=== PATIENT | male | born 2000 | race Two or more races ===

== ENCOUNTER 2024-12-26 13:05 | Emergency (ER) | payer SELFPAY ==
--- NOTE | 2024-12-26 14:07 | EKG_ITS ---
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
--- NOTE | 2024-12-26 14:07 | XR_ITS ---
Examination: PA lateral chest 2 views Technique: Upright PA lateral chest 2 views Date and time: December 26, 2024 1420 hrs. Indications: Chest pain beginning 2 days ago with hypertension. Findings: Normal heart size. Lungs are clear. The osseous structures are intact. Impression: No active disease.
--- NOTE | 2024-12-26 14:07 | PD.EDRME ---
Rapid Medical Screening Exam RME Arrival date/time: 12/26/24 13:05 24-year-old male presents to the Emergency Department for complaint of headache and chest pain and shortness of breath Chief Complaint: Shortness of Breath/Dyspnea
[2024-12-26 14:08] VITALS: BP 147/91; PULSE 79; RESP 18; TEMP 37.3; O2SAT 99; BMI 31.6
--- NOTE | 2024-12-26 14:08 | XR_ITS ---
Examination: CT brain head without contrast. 2-D sagittal coronal reconstructions Date and time of exam:December 26 thousand 25, 1618 hours INDICATIONS: Generalized head pain and dizziness today CTDI: vol (mGy):49.8 DLP: (mGycm):1003 Technique: Multiple CT axial sections of the brain have been obtained, 5 mm slice thickness. Contrast has not been administered. 2-D sagittal, coronal reconstructions have been obtained Low dose protocols were performed. One or more of the following dose reduction techniques were used; automated exposure control, adjustment of the mA and/or KV according to patient size, use of iterative reconstruction technique. Findings: No significant ventricular enlargement. Intra-axial or extra-axial hemorrhage density is not seen. No mass effect or midline shift Basal cisterns are not remarkable. Fourth ventricle is midline. Cranial vault intact. Impression: Negative for acute hemorrhage, mass effect or midline shift Advise clinical correlation and follow-up accordingly
[2024-12-26 15:46] LABS: Basophils # (Auto) 0.0 Thou/mm3 (0.0-0.2); Basophils % (Auto) 0 % (0-2.5); Eosinophils # (Auto) 0.0 Thou/mm3 (0.0-0.5); Eosinophils % (Auto) 0 % (0-10); Hematocrit 41.8 % (41.0-53.0); Hemoglobin 14.8 g/dL (13.5-16.0); Immature Granulocytes Auto 0.05 Thou/mm3 (0.00-0.00); Lymphocytes # (Auto) 1.4 Thou/mm3 (1.0-4.8); Lymphocytes % (Auto) 13 % (10-50); Mean Corpuscular HGB Conc 35.4 g/dl (31.0-37.0); Mean Corpuscular Hemoglobin 29.0 pg (25.0-35.0); Mean Corpuscular Volume 82 fL (80-100); Monocytes # (Auto) 0.8 Thou/mm3 (0.0-0.8); Monocytes % (Auto) 7 % (0-12); Neutrophils # (Auto) 9.0 Thou/mm3 (1.8-7.7); Neutrophils % (Auto) 80 % (37-80); Nucleated Red Blood Cell # 0.00 Thou/mm3 (0.00-0.00); Nucleated Red Blood Cell % 0 /100 WBC (0); RDW Standard Deviation 35.6 fL (35.1-43.9); Red Blood Count 5.10 Miln/mm3 (4.50-5.90); White Blood Count 11.3 Thou/mm3 (3.8-10.6)
[2024-12-26 16:03] LABS: Alanine Aminotransferase 30 U/L (10-49); Albumin, Serum 5.0 gm/dL (3.5-5.0); Albumin/Globulin Ratio 2.2 (1.2-2.2); Alkaline Phosphatase 85 U/L (46-116); Anion Gap 11 (7-16); Aspartate Amino Transferase 28 U/L (0-34); BUN/Creatinine Ratio 10 Ratio (12-20); Bilirubin,Total 0.7 mg/dL (0.3-1.2); Blood Urea Nitrogen 11 mg/dL (9-23); Calcium 10.6 mg/dL (8.3-10.6); Calcium (Corrected) 10.6 mg/dL (8.5-10.1); Carbon Dioxide 24.8 mMol/L (20.0-31.0); Chloride 104 mMol/L (98-107); Creatinine (Component) 1.1 mg/dL (0.6-1.3); Estimated Creatinine Clearance 106.3 mL/min (>60); Globulin 2.3 gm/dL (2.3-3.5); Glucose 106 mg/dL (74-106); Osmolality,Calculated 278 (275-295); Potassium 4.1 mMol/L (3.4-5.1); Sodium 140 mMol/L (136-145); Total Protein 7.3 gm/dL (5.7-8.2); Troponin I < 0.002 ng/mL (0.0-0.045); eGFR > 60 See Note
[2024-12-26 16:04] LABS: Platelet Count 202 Thou/mm3 (140-440)
[2024-12-26 17:40] VITALS: BP 158/92; PULSE 88; RESP 18; TEMP 37; O2SAT 98
--- NOTE | 2024-12-26 19:27 | PD.EDHA ---
ED Headache RME/HPI General Chief Complaint: Shortness of Breath/Dyspnea Stated Complaint: SOB, CHEST PAIN, HEADACHE X 1 DAY Time Seen by Provider: 12/26/24 14:16 Source: patient Arrival date/time: 12/26/24 13:05 24-year-old male with no known medical history presents to the emergency room with a chief complaint of a headache, chest pain, shortness of breath x 1 day Mode of arrival: ambulatory Limitations: no limitations RME / HPI RME / HPI Narrative: 12/26/24 13:05 24-year-old male presents to the Emergency Department for complaint of headache and chest pain and shortness of breath Related Data Previous Rx's ?Medication ?Instructions ?Recorded acetaminophen-caffeine 500 mg-65 1 tab PO Q8H PRN pain #30 tabs 12/26/24 mg tablet (Excedrin Tension Headache) Allergies Allergy/AdvReac Type Severity Reaction Status Date / Time No Known Allergies Allergy Verified 12/26/24 13:09 Review of Systems Review of Systems Systems Reviewed: All systems reviewed, normal except as documented Constitutional Constitutional: Reports system reviewed and no additional complaints, except as documented, Denies fatigue, Denies fever(s), Reports headache(s) and Denies weakness Eyes Eyes: Reports system reviewed and no additional complaints, except as documented, Denies blurry vision and Denies change in vision ENT Ears, Nose, Mouth, and Throat: Reports system reviewed and no additional complaints, except as documented, Denies otalgia, Reports headache(s), Denies nasal congestion, Denies throat swelling and Denies vertigo Cardiovascular Cardiovascular: Reports system reviewed and no additional complaints, except as documented, Denies chest pain, Reports dyspnea and Denies dyspnea on exertion Respiratory Respiratory: Reports system reviewed and no additional complaints, except as documented, Denies chest congestion, Denies cough, Reports dyspnea, Denies dyspnea on exertion and Denies wheezing Gastrointestinal Gastrointestinal: Reports system reviewed and no additional complaints, except as documented, Denies abdominal pain, Denies cramping, Denies nausea and Denies vomiting Genitourinary Genitourinary: Reports system reviewed and no additional complaints, except as documented, Denies dysuria and Denies hematuria Musculoskeletal Musculoskeletal: Reports system reviewed and no additional complaints, except as documented and Denies back pain Integumentary/Breasts Skin/Breast: Reports system reviewed and no additional complaints, except as documented and Denies wounds Neurologic Neurologic: Reports system reviewed and no additional complaints, except as documented, Denies confusion, Reports headache(s), Denies lack of coordination, Denies vertigo and Denies weakness Psychiatric Psychiatric: Reports system reviewed and no additional complaints, except as documented, Denies anxiety, Denies confusion, Denies depression, Denies paranoia, Denies suicidal ideation and Denies tactile hallucinations Endocrine Endocrine: Reports system reviewed and no additional complaints, except as documented and Denies fatigue Hematologic/Lymphatic Hematologic/Lymphatic: Reports system reviewed and no additional complaints, except as documented and Denies lymphadenopathy Allergic/Immunologic Allergic/Immunologic: Reports system reviewed and no additional complaints, except as documented, Denies throat swelling, Denies urticaria and Denies wheezing Past Medical History Social History SMOKING STATUS: Never smoker ED Exam General Limitations: Present no limitations General appearance: Present alert and in no apparent distress Head Head exam: Present atraumatic, normocephalic and normal inspection Eye Eye exam: Present normal appearance, PERRL and EOMI ENT ENT exam: Present normal exam, normal oropharynx and mucous membranes moist Neck Neck exam: Present normal inspection, full ROM and trachea midline Chest Chest inspection: Present normal inspection and symmetric chest wall rise Respiratory Respiratory exam: Present normal lung sounds bilaterally; Absent respiratory distress, wheezes, stridor, accessory muscle use or prolonged expiratory phase Cardiovascular Cardiovascular exam: Present regular rate, normal rhythm and normal heart sounds; Absent tachycardia Abdominal Exam Abdominal exam: Present soft and normal bowel sounds; Absent tenderness Extremities Exam Extremities exam: Present normal inspection and full ROM Back Exam Back exam: Present normal inspection and full ROM Neurological Exam Neurological exam: Present alert, oriented X3 and CN II-XII intact Psychiatric Psychiatric exam: Present normal affect and normal mood Skin Skin exam: Present warm, dry, intact and normal color Course Quality Measures none Orders Category Date Time Status Bedside COVID-19 Antigen Test NOW Care 12/26/24 14:07 Completed Bedside Influenza A&B Antigen Test NOW Care 12/26/24 14:07 Completed EKG (ED ONLY) *Do not use* NOW Care 12/26/24 14:[address] head/brain wo con Stat Exams 12/26/24 14:08 Completed EKG (ED Only) Stat Exams 12/26/24 14:07 Draft XR chest 2V Stat Exams 12/26/24 14:07 Completed CBC Stat Lab 12/26/24 15:13 Completed Comprehensive Metabolic Panel Stat Lab 12/26/24 15:13 Completed Troponin I Stat Lab 12/26/24 15:13 Completed DiphenhydrAMINE [Benadryl] Med 12/26/24 19:26 Discontinued 25 mg PO X1 ONE Ketorolac Inj [Toradol Inj] Med 12/26/24 19:26 Discontinued 30 mg IM X1 ONE Metoclopramide [Reglan] Med 12/26/24 19:26 Discontinued 10 mg PO X1 ONE Vital Signs Vital signs: Vital Signs Temperature 99.1 F 12/26/24 14:08 Pulse Rate 79 12/26/24 14:08 Respiratory Rate 18 12/26/24 14:08 Blood Pressure 147/91 H 12/26/24 14:08 Pulse Oximetry (%) 99 12/26/24 14:08 Oxygen Delivery Method Room Air 12/26/24 14:08 O2 saturation 99% within normal limits Headache MDM Narrative MDM Narrative:: 24-year-old male with no known medical history presents to the emergency room with a chief complaint of a headache, chest pain, shortness of breath x 1 day patient is hemodynamically stable and in no apparent distress Physical examination Shows a normal neurological exam. Patient is a GCS of 15 pupils are PERRLA EOMs are intact. The patient has a strong and regular rhythm patient has clear bilateral lung sounds with no wheezing stridor or any abnormal breath sounds A CT of the head and brain was completed and shows no acute findings. Chest x-ray was negative for any pneumonic infiltrates. Patient was given pain medication for his headache with significant improvement in his symptoms Patient was discharged and educated to follow-up with primary care provider in the next 24 to 48 hours and return to the emergency room for any evidence of worsening signs or symptoms Patient data External records reviewed:: [facility] previous records Clinical information provided by:: patient Social determinants that could affect healthcare access:: none Patient has the following chronic illnesses:: No chronic illness How is presenting disease/condition affected by chronic disease/condition?: no chronic disease Evaluation data The following diagnostics were reviewed and interpreted by me:: lab results and radiology exam(s) Lab and/or radiology exams considered but not ordered:: Labs and radiology exams considered and ordered Interpretation Summary: CT head and brain-Findings: No significant ventricular enlargement. Intra-axial or extra-axial hemorrhage density is not seen. No mass effect or midline shift Basal cisterns are not remarkable. Fourth ventricle is midline. Cranial vault intact. Impression: Negative for acute hemorrhage, mass effect or midline shift Advise clinical correlation and follow-up accordingly [id number]: Normal heart size. Lungs are clear. The osseous structures are intact. Impression: No active disease. Medications / Prescriptions Medications or Prescriptions considered but not ordered:: Medication given Medication administrations:: Medication Administration History Discontinued Medications Diphenhydramine HCl (Diphenhydramine 25 Mg Capsule) 25 mg PO X1 ONE Stop: 12/26/24 19:27 Last Admin: 12/26/24 19:38 Dose: 25 mg Documented By: TABITHA Ketorolac Tromethamine (Ketorolac Inj 60 Mg/2 Ml Vial) 30 mg IM X1 ONE Stop: 12/26/24 19:27 Last Admin: 12/26/24 19:39 Dose: 30 mg Documented By: TABITHA Metoclopramide HCl (Metoclopramide 5 Mg Tablet) 10 mg PO X1 ONE Stop: 12/26/24 19:27 Last Admin: 12/26/24 19:38 Dose: 10 mg Documented By: TABITHA Medication given Consultations Consultation(s) initiated? (list below): No Diagnosis Differential diagnosis headache: migraine, tension headache, headache and postconcussion syndrome Most likely diagnosis given after review of the tests above:: Headache Admission Indicated Admission indicated?: not indicated Admission Request Was there a request for admission?: No Disposition Plan Disposition Plan: Discharge Discharge Attestation Discharge Attestation: The patient and all family members were given an opportunity to ask questions and understood the discharge instructions. Discharge instructions specifically effects, indications for sooner follow up or return to the emergency department, and the expected course of current diagnosis. Patient condition: Stable Discharge Plan Plan Patient Disposition: HOME (Self Care) Discharge Disposition comment: Stable Prescriptions/Referrals Prescriptions/Med Rec: New Excedrin Tension Headache 500-65 mg tablet 1 tab PO Q8H PRN (Reason: pain) Qty: 30 0RF Referrals: No Primary/Family,Physician [Primary Care Provider] - In 1 week Problem List Clinical Impression: Chest pain, Headache Patient/Caregiver Discharge Instructions Education Materials: ED Chest Pain, Noncardiac Additional Instructions: Luis un seguimiento con vasques proveedor de atenci?n primaria en las pr?ximas 24 a 48 horas. Se complet? doris tomograf?a computarizada de vasques bibi y cerebro y fue negativa para cualquier hallazgo gabino. Vasques radiograf?a de t?rax fue negativa para cualquier hallazgo gabino. Vasques an?lisis de river y vasques electrocardiograma estuvieron dentro de los l?mites normales. Ante cualquier evidencia de empeoramiento de los signos o s?ntomas, regrese a la abdoulaye de emergencias de inmediato. Print Language: Polish Stand Alone Forms: Abigail Award Info., Patient Portal Info Letter PA/CARTRIDGE GAUGER Supervising Physician PA/CARTRIDGE GAUGER Supervising Physician: Dr. Guerrero
[2024-12-26] MEDS: METOCLOPRAMIDE 5 MG TABLET 10 MG PO (19:38)
[2024-12-26] MEDS: KETOROLAC INJ 60 MG/2 ML VIAL 30 MG IM (19:39)
[2024-12-26 20:12] VITALS: BP 120/69; PULSE 63; RESP 18; TEMP 36.4; O2SAT 97
== END 2024-12-26 20:13 | disposition home or self-care (01) ==
PROVIDERS: Nurse Practitioner Primary Care; Emergency Provider Emergency Medicine
DX: R07.9 Chest pain, unspecified (principal); R51.9 Headache, unspecified; R42 Dizziness and giddiness; R94.31 Abnormal electrocardiogram [ECG] [EKG]
CPT/HCPCS: 36415; 70450; 71046; 80053; 83615; 84484; 85025; 93005; 96372; 99284; J1885; A9270